=== PATIENT | female | born 1945 | race Caucasian/White ===

== ENCOUNTER 2019-03-25 16:42 | Outpatient (REF) | payer MEDICARE, BC, SELFPAY ==
[2019-03-25 21:17] LABS: ALT 30 U/L (12-78); Anion Gap 8.6 mmol/L (3-11); BUN 22 mg/dL (7-18); CO2 28.4 mmol/L (21.0-32.0); CREATININE 1.07 mg/dL (0.55-1.02); Calcium 9.3 mg/dL (8.5-10.1); Chloride 103 mmol/L (98-107); Estimated GFR 50.55 (mL/min/1.73m2); Glucose 86 mg/dL (70-100); LDL CHOLESTEROL 85 mg/dL (<100); Potassium 3.7 mmol/L (3.5-5.1); Sodium 140 mmol/L (136-145)
== END 2019-03-25 17:02 ==
LOC: NCHCN 16:42
PROVIDERS: PCP Family Medicine; Visit Provider Internal Medicine
DX: I10 Essential (primary) hypertension (principal); E78.5 Hyperlipidemia, unspecified
CPT/HCPCS: 80048; 83721; 84460

== ENCOUNTER 2020-04-07 14:10 | Outpatient (REF) | payer MEDICARE, BC, SELFPAY ==
[2020-04-07 19:49] LABS: Prothrombin Time 9.8 sec (9.3-11.0)
[2020-04-07 20:19] LABS: Hemoglobin A1C 8.7 % (3.8-5.6)
[2020-04-07 20:28] LABS: Anion Gap 10.6 mmol/L (3-11); BUN 25 mg/dL (7-18); CO2 25.4 mmol/L (21.0-32.0); CREATININE 1.24 mg/dL (0.55-1.02); Calcium 9.3 mg/dL (8.5-10.1); Chloride 101 mmol/L (98-107); Estimated GFR 42.52 (mL/min/1.73m2); FREE T4 1.14 ng/dL (0.76-1.46); Glucose 215 mg/dL (74-106); NT-proBNP 40 pg/mL (<300); Potassium 3.6 mmol/L (3.5-5.1); Sodium 137 mmol/L (136-145); TSH 1.44 uIU/mL (0.36-3.74)
[2020-04-07 20:45] LABS: Troponin I < 0.05 ng/Ml (<0.06)
== END 2020-04-07 14:30 ==
LOC: NCHCN 14:10
PROVIDERS: PCP Family Medicine; Visit Provider Internal Medicine
DX: E11.9 Type 2 diabetes mellitus without complications (principal); I10 Essential (primary) hypertension; R06.09 Other forms of dyspnea; I20.8 Other forms of angina pectoris; E78.5 Hyperlipidemia, unspecified
CPT/HCPCS: 80048; 83036; 83880; 84439; 84443; 84484; 85610

== ENCOUNTER 2021-03-27 11:43 | Outpatient (REF) | payer MEDICARE, BC, SELFPAY ==
[2021-03-27 16:13] LABS: Anion Gap 10.9 mmol/L (3-11); BUN 20 mg/dL (7-18); CO2 27.1 mmol/L (21.0-32.0); CREATININE 1.1 mg/dL (0.55-1.02); Calcium 9.7 mg/dL (8.5-10.1); Chloride 103 mmol/L (98-107); Estimated GFR 48.69 (mL/min/1.73m2); Glucose 158 mg/dL (74-106); Potassium 3.9 mmol/L (3.5-5.1); Sodium 141 mmol/L (136-145); TSH 2.11 uIU/mL (0.36-3.74)
== END 2021-03-27 11:44 | disposition home or self-care (01) ==
LOC: NCHCN 11:43
PROVIDERS: PCP Family Medicine; Visit Provider Internal Medicine
DX: I10 Essential (primary) hypertension (principal); E11.9 Type 2 diabetes mellitus without complications; G60.9 Hereditary and idiopathic neuropathy, unspecified
CPT/HCPCS: 80048; 84443

== ENCOUNTER 2022-03-30 15:42 | Outpatient (REF) | payer MEDICARE, BC, SELFPAY ==
[2022-03-30 18:52] LABS: HCT 39.7 % (36.0-46.0); HGB 12.7 g/dL (11.2-15.7); MCH 29.1 pg (27.0-33.0); MCV 91 fL (80-95); MPV 11.3 fL (8.0-11.0); Platelet Count 308 10^3/uL (130-400); RBC 4.37 10^6/uL (3.93-5.22); RDW 13.2 % (11.7-14.6); RDW-SD 44.2 fL; WBC 7.75 10^3/uL (4.4-10.8)
[2022-03-30 19:14] LABS: ALT 30 U/L (14-59); CREATININE 1.2 mg/dL (0.55-1.02); Calcium 9.4 mg/dL (8.5-10.1); Chloride 104 mmol/L (98-107); Cholesterol 157 mg/dL (<200); Estimated GFR 43.91 (mL/min/1.73m2); Glucose 119 mg/dL (74-106); Potassium 3.9 mmol/L (3.5-5.1); Sodium 141 mmol/L (136-145); Triglyceride 127 mg/dL (<150)
[2022-03-30 19:42] LABS: BUN 24 mg/dL (7-18); Calculated LDL 78 mg/dL (<100); HDL Cholesterol 54 mg/dL (40-60)
== END 2022-03-30 15:43 | disposition home or self-care (01) ==
LOC: NCHCN 15:42
PROVIDERS: Visit Provider Internal Medicine
DX: I10 Essential (primary) hypertension (principal); E11.9 Type 2 diabetes mellitus without complications; G47.00 Insomnia, unspecified
CPT/HCPCS: 80048; 80061; 85027; 84460

== ENCOUNTER 2023-03-21 13:09 | Outpatient (REF) | payer MEDICARE, BC, SELFPAY ==
[2023-03-21 20:04] LABS: ALT 27 U/L (14-59); Albumin 3.9 g/dL (3.4-5.0); Anion Gap 10.5 mmol/L (3-11); BUN 19 mg/dL (7-18); CO2 26.5 mmol/L (21.0-32.0); Chloride 104 mmol/L (98-107); Creatine Kinase 69 U/L (26-192); Estimated GFR 58.75 (mL/min/1.73m2); Glucose 113 mg/dL (74-106); PHOSPHORUS 3.9 mg/dL (2.6-4.7); Sodium 141 mmol/L (136-145); TSH 1.71 uIU/mL (0.36-3.74)
[2023-03-21 20:26] LABS: Calculated LDL 58 mg/dL (<100); Cholesterol 141 mg/dL (<200); HDL Cholesterol 59 mg/dL (40-60); Triglyceride 122 mg/dL (<150)
== END 2023-03-21 13:10 | disposition home or self-care (01) ==
LOC: NCHCN 13:09
PROVIDERS: Visit Provider Internal Medicine
DX: E11.9 Type 2 diabetes mellitus without complications (principal); I10 Essential (primary) hypertension; M54.16 Radiculopathy, lumbar region
CPT/HCPCS: 80061; 80069; 82550; 84443; 84460

== ENCOUNTER 2025-03-03 14:49 | Outpatient (REF) | payer MEDICARE, BC, SELFPAY ==
[2025-03-03 20:25] LABS: HCT 37.3 % (36.0-46.0); MCH 30.8 pg (27.0-33.0); MCHC 32.2 % (32.0-36.0); MCV 96 fL (80-95); MPV 11.3 fL (8.0-11.0); Platelet Count 279 10^3/uL (130-400); RBC 3.89 10^6/uL (3.93-5.22); RDW 12.4 % (11.7-14.6); RDW-SD 43.7 fL; WBC 6.64 10^3/uL (4.4-10.8)
[2025-03-03 20:42] LABS: ALT 18 U/L (14-59); Anion Gap 11.1 mmol/L (3-11); BUN 26 mg/dL (7-18); CO2 25.9 mmol/L (21.0-32.0); CREATININE 1.3 mg/dL (0.55-1.02); Calcium 9.4 mg/dL (8.5-10.1); Chloride 107 mmol/L (98-107); Creatine Kinase 61 U/L (26-192); Estimated GFR 42.35 (mL/min/1.73m2); Glucose 93 mg/dL (74-106); Potassium 4.9 mmol/L (3.5-5.1); Sodium 144 mmol/L (136-145); TSH 2.15 uIU/mL (0.36-3.74)
[2025-03-03 21:09] LABS: Calculated LDL 51 mg/dL (<100); Cholesterol 136 mg/dL (<200); HDL Cholesterol 60 mg/dL (>or=50); Triglyceride 129 mg/dL (<150)
== END 2025-03-03 14:50 | disposition home or self-care (01) ==
LOC: NCHCN 14:49
PROVIDERS: Visit Provider Internal Medicine
DX: I10 Essential (primary) hypertension (principal); E78.5 Hyperlipidemia, unspecified
CPT/HCPCS: 80048; 80061; 82550; 85027; 84443; 84460